=== PATIENT | male | born 1955 | race Caucasian/White ===

== ENCOUNTER → 2023-06-08 12:21 | Outpatient (CLI) | payer MEDICARE, OTHER, SELFPAY | PROVIDERS: Referring Provider Family Medicine; Visit Provider Family Medicine | DX: R00.2 Palpitations (principal) | CPT/HCPCS: 93246 ==

== ENCOUNTER → 2023-08-11 07:53 | Outpatient (CLI) | payer MEDICARE, OTHER, SELFPAY ==
--- NOTE | 2023-08-11 07:56 | DI.ECHO.S_ITS ---
[place] +---------+ [facility] +---------+ : : [address] : [address] : : : : [id number] : : : : Phone: [phone]---------+ Echocardiogram Report + + :Name: ROD SARABIA Study Date: 08/11/2023 Height: 70 in : :[facility] ReadingLocation: Weight: 221 lb : : Gender: Male BSA: 2.2 m2 : :: 1955 Age: 68 yrs BP: 142/93 mmHg: :Reason For Study: PALPITATIONS : :Ordering Physician: SHREE, : :SIOMARA Evangelista Performed By: Christel Stroud : :Referring: ISOMARA SWANN : + + Interpretation Summary The ejection fraction is estimated to be 50-55%. There is mild aortic regurgitation. Procedure: A two-dimensional transthoracic echocardiogram with color flow and Doppler was performed. The study quality was technically adequate. There is no prior echocardiogram noted for this patient. The patient was in sinus rhythm with heart rates between 63-71 bpm during the exam. Left Ventricle: The left ventricle is normal in size and wall thickness. The ejection fraction is estimated to be 50-55%. Left ventricular wall motion is normal. Right Ventricle: The right ventricle is normal in size and function. Atria: The left atrial size is normal. Right atrial size is normal. There is no Doppler evidence for an interatrial shunt. Mitral Valve: The mitral valve is normal in structure and function. There is trace mitral regurgitation. Aortic Valve: The aortic valve is trileaflet. The aortic valve opens well. There is no aortic valve stenosis. There is mild aortic regurgitation. Tricuspid Valve: The tricuspid valve is normal in structure and function. There is a trace or physiologic amount of tricuspid regurgitation. Pulmonic Valve: The pulmonic valve leaflets are thin and pliable; valve motion is normal. There is trace pulmonic regurgitation. Great Vessels: The aortic root is mildly dilated. The ascending aorta is mild-moderately enlarged. The IVC is of normal diameter and collapses greater than 50% with a sniff. This suggests a low right atrial pressure of 3 mm Hg. Pericardium/ Pleura There is no pericardial effusion. There is no pleural effusion. MMode/2D Measurements & Calculations LVIDd: 4.2 cm LVOT diam: 2.7 cm LVIDs: 2.9 cm Ao root diam: 4.2 cm FS: 30.3 % asc Aorta Diam: 4.3 cm EPSS: 0.62 cm Ao Arch Diam (Prox Trans): 2.9 cm IVSd: 0.91 cm LVPWd: 0.76 cm LV chan. diameter/BSA (cm/m^2): 1.9 LV sys. diameter/BSA (cm/m^2): 1.3 LA A2 area: 20.3 cm2 RA long axis: 5.0 cm LA A4 area: 16.4 cm2 RA area: 18.9 cm2 LA length (vol): 5.0 cm RA vol: 60.0 ml LA vol: 57.0 ml RA : 27.5 ml/m2 LA vol index: 26.2 ml/m2 IVC diam: 1.9 cm RVD1 (basal): 4.0 cm RVD2 (mid): 2.5 cm TAPSE: 2.6 cm Doppler Measurements & Calculations Ao V2 max: 92.2 cm/sec LVOT Max Piero: 91.2 cm/sec Ao V2 mean: 67.6 cm/sec LV V1 max P.3 mmHg Ao max P.4 mmHg LV V1 VTI: 20.1 cm Ao mean P.0 mmHg CHRISTOS(I,D): 5.3 cm2 Ao V2 VTI: 21.6 cm CHRISTOS(V,D): 5.6 cm2 sev ratio: 0.93 CHRISTOS indexed to BSA (cm^2/m^2): 2.4 MV E max piero: 60.9 cm/sec PA V2 max: 78.9 cm/sec MV A max piero: 45.7 cm/sec PA V2 mean: 60.6 cm/sec MV E/A: 1.3 PA mean P.6 mmHg Med Peak E' Piero: 8.3 cm/sec PA pr(Accel): 51.6 mmHg E/E' med: 7.3 Lat Peak E' Piero: 8.2 cm/sec E/E' lat: 7.4 E/e' average: 7.4 MV dec time: 0.19 sec SV(LVOT): 114.4 ml Reading Physician:01:23 PM
== END ==
LOC: ECHO 07:54
PROVIDERS: PCP Family Medicine; Referring Provider Family Medicine; Visit Provider Family Medicine
DX: R00.2 Palpitations (principal); I35.1 Nonrheumatic aortic (valve) insufficiency; I77.810 Thoracic aortic ectasia; I77.89 Other specified disorders of arteries and arterioles
CPT/HCPCS: 93306

== ENCOUNTER → 2024-07-27 07:27 | Outpatient (CLI) | payer MEDICARE, OTHER, SELFPAY ==
--- NOTE | 2024-07-27 14:29 | DI.NM.S_ITS ---
DATE OF SERVICE: 07/27/2024 PROCEDURE: Exercise stress test. INDICATIONS: Palpitation. CARDIAC STRESS: The patient underwent exercise stress test under the supervision of an attending staff. He walked on Mendoza protocol for 9 minutes and 21 seconds; achieved maximum heart rate of 149, which was 97% of target heart rate. Resting blood pressure 132/90 and peak blood pressure 202/100 mmHg. 10.1 METs of workload. TRIPP -22%. Baseline rhythm was sinus with repolarization changes. During close to peak exercise, the patient developed about 1 to [address] depression in inferior leads and some nonspecific upsloping ST depression in anterior leads. It got resolved to recovery within 1 minute. In the recovery, the patient has 5 to 6 beats short run of atrial tachycardia. Some PACs. No significant PVCs or ventricular tachycardia or obvious AFib. Artifact seen as well. No chest pain or palpitation. [place] some shortness of breath. CONCLUSION: This is an abnormal exercise stress test for inducible ischemia. However, those ST depression in inferior leads, which was about 1 to 1.[address] depression, got resolved within 1 minute in recovery. The patient also has baseline repolarization changes. Excellent exercise tolerance. TRIPP -22%. Hypertensive blood pressure response. Short run of atrial tachycardia in recovery as well as some premature atrial contractions. No ventricular tachycardia or obvious atrial fibrillation. No anginal symptoms. Had some shortness of breath. Correlate clinically and consider repeating exercise stress test with imaging modality like perfusion study or stress echo. Joe Myers - ISAAC/bonny/LYSSA doc#: [id number]/job#: [id number] dd: 07/27/2024 13:03:00 dt: 07/27/2024 13:14:00 DICTATING MD/COPIES TO: Niranjan Centeno MD; Dr. Faith COPIES MNE: ALEXUS; ; Dr. Faith
== END ==
PROVIDERS: PCP Family Medicine; Referring Provider Internal Medicine Cardiovascular Disease; Visit Provider Internal Medicine Cardiovascular Disease
DX: R00.2 Palpitations (principal); R94.39 Abnormal result of other cardiovascular function study
CPT/HCPCS: 93017